=== PATIENT | male | born 1975 | race Caucasian/White ===

== ENCOUNTER 2017-10-28 11:45 | Day surgery (SDC) | payer OTHER ==
[~2017-10-28] VITALS: Ht 162.6 cm; Wt 71.0 kg
[~2017-10-28 11:45] MED LIST: CLINDAMYCIN 900MG PREMIX 50 ML IV PRN; FLUT1DIS5 IH; HYDROmorphone 2 MG/ML VIAL IV PRN; IV RINGERS,LACTATED 1000ML 1,000 ML IV SCH; LIDOCAINE 1% PF 2 ML VIAL. ID PRN; MORPHINE SULFATE 2 MG/ML DISP.SYRIN. IV PRN; ONDANSETRON PF 4 MG/2 ML VIAL. IV PRN; PROCHLORPERAZINE 10 MG/2 ML VIAL. IV PRN; fentaNYL PF VIAL 100 MCG/2 ML VIAL IV PRN
[2017-10-28] MEDS ORDERED: PROAIR HFA8.5 GM INH (12:17)
[2017-10-28] MEDS ORDERED: BUPIVACAINE MPF 0.5% 30 ML VIAL. ONE (12:56)
[2017-10-28] MEDS ORDERED: MIDAZOLAM HCL/PF 2 MG/2 ML VIAL. ONE (12:58)
[2017-10-28] MEDS ORDERED: DEXAMETHASONE SOD PHOS 20 MG/5 ML VIAL. ONE (12:59)
[2017-10-28] MEDS ORDERED: FAMOTIDINE 20 MG/2 ML VIAL ONE (12:59)
[2017-10-28] MEDS ORDERED: ROCURONIUM 50 MG/5 ML VIAL. ONE (12:59)
[2017-10-28] MEDS ORDERED: PROPOFOL 20 ML IV ONE (12:59)
[2017-10-28] MEDS ORDERED: LIDOCAINE 2% PF Vial for OR 5 ML VIAL. ONE (12:59)
[2017-10-28] MEDS ORDERED: ONDANSETRON PF 4 MG/2 ML VIAL. ONE (12:59)
[2017-10-28] MEDS ORDERED: fentaNYL PF VIAL 100 MCG/2 ML VIAL ONE (13:26)
[2017-10-28] MEDS ORDERED: MIDAZOLAM HCL/PF 2 MG/2 ML VIAL. IV ONE (13:30)
[2017-10-28] MEDS ORDERED: EPINEPHrine VIAL 30 MG/30 ML VIAL ONE (14:04)
[2017-10-28] MEDS ORDERED: SEVOFLURANE > 120 MINUTES. IH ONE (16:26)
[2017-10-28] MEDS ORDERED: NEOSTIGMINE METHYLSULFATE 5 MG/5 ML SYRINGE. ONE (16:26)
[2017-10-28] MEDS ORDERED: GLYCOPYRROLATE 1 MG/5 ML VIAL. ONE (16:26)
--- NOTE | 2017-10-28 16:44 | DISCH ---
DISCHARGE INSTRUCTIONS Condition on Discharge Condition on Discharge: Stable Activity After Discharge Activity Instructions for Disc: Other, see below (wear immobilizer at night at all times, may remove to eat shower and gentle motion exercises) Other activity instructions: avoid lifting or hard pushing and pulling Diet after Discharge Diet after Discharge: Regular (PROM to 90 elevation, AAROM as tolerated, no strength for 4 weeks postop) Wound Incision Care Wound/Incision Care: Ice to area for comfort, Change dressing Other wound/incision instructi: May remove dressing in 2 days may then shower Community/Resources/Services Services at Discharge: PT EVALUATE & TREAT Contacting the [facility] after [place] Call your doctor for: Concerns you may have Follow-Up Follow up with: Rosa Maria 1 week SALLIE KEYS MD Oct 28, 2017 16:44
[2017-10-28] MEDS ORDERED: OXYC-327 PO (16:45)
--- NOTE | 2017-10-28 16:57 | PDOC4 ---
Operative Note Operative Note Date of surgery: 10/28/2017 Preoperative diagnosis: Calcific tendinitis of supraspinatus possible rotator cuff tear Postoperative diagnosis: Same with near full-thickness bursal sided rotator cuff tear and SLAP tear type 2 Operative procedure: Left shoulder arthroscopy SLAP repair debridement of calcific tendinitis and rotator cuff repair Surgeon: Rosa Maria Anesthesia: Gen. endotracheal plus interscalene block Estimated blood loss: 10 mL Complications: None Operative indications: Patient is a 42-year-old male who injured his left shoulder during a [employer] exercise and has pain trying to lift his arm overhead laying on the shoulder as well has been unresponsive to physical therapy. MRI shows significant calcific tendinitis which I was concerned may significantly affect the integrity of the distal supraspinatus tendon. In addition he seemed to have some bicipital irritation but no evidence of labral injury on MRI. I had gone over with him the typical arthroscopic treatment since he has not responded to physical therapy and other nonoperative treatment with expected debridement of the calcific tendinitis and if there is enough compromise the rotator cuff I would plan a rotator cuff repair. We also talked about dealing with any other pathology present in an appropriate manner and risks benefits postoperative course of the procedure including possibility of infection nerve or blood vessel damage nonhealing medical or other anesthetic complications among others all his questions were answered he wishes to proceed with surgical evaluation and treatment Operative text: Patient was identified procedure verified patient placed in the supine position on the operating table after adequate amounts of general endotracheal anesthesia and a pre-existing scalene block were obtained he was placed decubitus left side up all bony prominences were well-padded and the shoulder was noted to have full range of motion without instability. The left shoulder was then prepped and draped in standard sterile fashion placed in the arthroscopic arm lee potential of 10 pounds of traction and after timeout was performed patient procedure identified and verified a standard posterior portal was established and the glenohumeral joint entered without difficulty. Anterior portal was established using spinal needle localization and the shoulder joint was systematically examined. He was noted to have significant superior labral fraying which was debrided back to stable tissue however a type II SLAP tear was present and given the capsule ligament structures bare area of the humerus and the rotator cuff insertion from the joint side appeared normal I elected to proceed with a SLAP repair. A portal was established at the posterior lateral aspect of the acromion through the muscular portion of the rotator cuff superior aspect of the glenoid was debrided back to bleeding bony tissue and juggernaut anchors were placed anterior and posterior to the biceps tendon achieving an excellent repair of the superior labrum with sliding locking knots backed up by alternating post-half hitches. The subacromial space was then entered and he had very significant bursitis which was cleared to allow visualization. An area of calcific tendinitis was located at the distal supraspinatus insertion anteriorly and after debridement was noted to be a very significant partial-thickness tear of the distal split supraspinatus near full- thickness in nature. The rotator cuff footprint was debrided sutures were placed through the involved portion of the rotator cuff and a [place] knotless anchor was placed laterally to achieve fixation of the distal supraspinatus. The repair was checked under all degrees of internal/external rotation. The joint was drained of arthroscopic fluid portals closed with nylon suture sterile dressings were applied he was placed in an immobilizer extubated transferred to postop holding in stable condition having tolerated procedure well SALLIE KEYS MD Oct 28, 2017 16:57
[2017-10-28] MEDS ORDERED: oxyCODONE/APAP 7.5/325 1 TAB TABLET PO ONE (17:15)
[2017-10-28 17:40] VITALS: BP 127/58
== END 2017-10-28 17:52 | disposition home or self-care (01) ==
LOC: SURG 11:45
PROVIDERS: ATTEND Orthopaedic Surgery
DX: M75.102 Unspecified rotator cuff tear or rupture of left shoulder, not specified as traumatic (principal); S43.432A Superior glenoid labrum lesion of left shoulder, initial encounter; M75.32 Calcific tendinitis of left shoulder; X58.XXXA Exposure to other specified factors, initial encounter; Y93.89 Activity, other specified; Y92.89 Other specified places as the place of occurrence of the external cause; Y99.8 Other external cause status
CPT/HCPCS: 29807; 29827; C1713; J0171; J1100; J2250; J2405; J2704; J2710; J3010; J3490; S0028; J2001

== ENCOUNTER 2017-10-28 23:07 | Emergency (ER) | payer OTHER ==
[~2017-10-28] VITALS: Ht 165.1 cm; Wt 70.3 kg
[~2017-10-28 23:07] MED LIST changes: -CLINDAMYCIN 900MG PREMIX 50 ML IV PRN; -HYDROmorphone 2 MG/ML VIAL IV PRN; -IV RINGERS,LACTATED 1000ML 1,000 ML IV SCH; -LIDOCAINE 1% PF 2 ML VIAL. ID PRN; -MORPHINE SULFATE 2 MG/ML DISP.SYRIN. IV PRN; -ONDANSETRON PF 4 MG/2 ML VIAL. IV PRN; +OXYC-327 PO; +PROAIR HFA8.5 GM INH; -PROCHLORPERAZINE 10 MG/2 ML VIAL. IV PRN; -fentaNYL PF VIAL 100 MCG/2 ML VIAL IV PRN
[2017-10-28 23:50] VITALS: BP 128/67
--- NOTE | 2017-10-29 00:45 | PHYS DOC ---
Past Medical History Past Medical History: Asthma Past Surgical History: Other Additional Past Surgical Histo: ROTATOR CUFF SX, R ANKLE SX Additional Information: 1 PK/DAY Alcohol Use: Occasionally Drug Use: None Adult General Chief Complaint Chief Complaint: MUSCLE SPASM/[facility] HPI Patient is a 42 year old male who presents with twitching and discoloration of his hand following rotator cuff repair surgery today. Review of Systems Review of Systems Constitutional: Denies fever or chills [] Respiratory: Denies cough or shortness of breath [] Cardiovascular: No additional information not addressed in HPI [] Musculoskeletal: See history of present illness Integument: See history of present illness Neurologic: Denies headache, focal weakness or sensory changes [] Endocrine: Denies polyuria or polydipsia [] All other systems were reviewed and found to be within normal limits, except as documented in this note. Allergies Allergies Allergies Coded Allergies Type Severity Reaction Last Updated Verified amoxicillin Allergy Intermediate HIVES INNER THIGH 10/28/17 Yes Physical Exam Physical Exam Constitutional: Well developed, well nourished, no acute distress, non-toxic appearance. 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 [] Extremities: Patient has some twitching that is occurring postsurgically, I explained that this was fairly common following a musculoskeletal surgery, pulses and sensation are intact the patient's fingers and hand are warm and he does have movement Neurologic: Alert and oriented X 3, normal motor function, normal sensory function, no focal deficits noted. [] Psychologic: Patient was anxious upon arrival into the room, after explanation he was calm and stated that he did not know what to expect postsurgically and was scared upon noticing the color of his hand Current Patient Data Vital Signs Vital Signs Date Time Temp Pulse Resp B/P (MAP) Pulse Ox O2 Delivery O2 Flow Rate FiO2 10/28/17 23:50 98.1 66 18 98 Room Air 98.1 EKG EKG [] Radiology/Procedures Radiology/Procedures [] Course & Med Decision Making Course & Med Decision Making Pertinent Labs and Imaging studies reviewed. (See chart for details) []1. Muscle spasming You appear to have normal postsurgical changes including some muscle twitching and spasming. You can check to make sure the ear pulses are strong and your hand and fingers are warm to the touch. The patient was instructed on how to check his pulse. I explained the color will gradually wear off from the surgical scrub and is nothing to be alarmed about. Please return to the ED if you feel you're worsening overnight. Dragon Disclaimer Dragon Disclaimer This electronic medical record was generated, in whole or in part, using a voice recognition dictation system. Departure Departure Impression: Primary Impression: Muscle spasm Disposition: 01 HOME, SELF-CARE Condition: STABLE Patient Instructions: Rotator Cuff Tear, Surgery for, with [facility] Additional Instructions: Follow-up with your orthopedic surgeon in the morning for any postsurgical questions. АННА BLANCO APRN Oct 29, 2017 00:45
== END 2017-10-29 00:28 | disposition home or self-care (01) ==
LOC: ER 23:07
DX: M62.838 Other muscle spasm (principal); J45.909 Unspecified asthma, uncomplicated; F17.200 Nicotine dependence, unspecified, uncomplicated; Z88.1 Allergy status to other antibiotic agents
CPT/HCPCS: 99283

== ENCOUNTER → 2018-01-19 | Outpatient (CLI) | payer OTHER ==
[~2018-01-19] MED LIST changes: +CONTRAST GIVEN MC; -FLUT1DIS5 IH; -OXYC-327 PO; -PROAIR HFA8.5 GM INH
[2018-01-19] MEDS: IOHEXOL 300 MG/ML 100ML VIAL. IV (10:16)
== END | disposition home or self-care (01) ==
LOC: KCIC CT 09:28
DX: N13.2 Hydronephrosis with renal and ureteral calculous obstruction (principal); N32.89 Other specified disorders of bladder
CPT/HCPCS: 74178; Q9967